=== PATIENT | female | born 1970 | race Caucasian/White ===

== ENCOUNTER 2019-11-15 08:59 | Outpatient (CLI) | payer OTHER | END 2019-11-15 09:00 | disposition home or self-care (01) | LOC: LAB 08:59 | PROVIDERS: ATTEND Physician Assistant | DX: L71.8 Other rosacea (principal) | CPT/HCPCS: 36415; 81599; 82785; 86003 ==

== ENCOUNTER 2022-04-27 07:25 | Outpatient (CLI) | payer OTHER ==
[2022-04-27 15:19] LABS: CREATININE 0.7 mg/dL (0.4-1.0); POTASSIUM 4.2 mmol/L (3.5-5.0)
== END 2022-04-27 07:26 | disposition home or self-care (01) ==
LOC: LAB.S 07:25
PROVIDERS: ATTEND Internal Medicine
DX: Z51.81 Encounter for therapeutic drug level monitoring (principal)
CPT/HCPCS: 36415; 82565; 84132

== ENCOUNTER 2022-08-16 08:39 | Emergency (ER) | payer OTHER | END 2022-08-16 09:13 | disposition left against medical advice (07) | LOC: ED 08:39 | DX: Z53.21 Procedure and treatment not carried out due to patient leaving prior to being seen by health care provider (principal) ==

== ENCOUNTER 2022-08-19 09:33 | Emergency (ER) | payer OTHER ==
[2022-08-19 09:48] VITALS: BP 199/116
[2022-08-19] MEDS ORDERED: BACITRACIN ZINC OINT 1 PACKET TOP STA (10:14)
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
== END 2022-08-19 10:35 | disposition home or self-care (01) ==
LOC: ED 09:33
DX: S80.812A Abrasion, left lower leg, initial encounter (principal); S80.811A Abrasion, right lower leg, initial encounter; W20.8XXA Other cause of strike by thrown, projected or falling object, initial encounter
CPT/HCPCS: 99282; A9270

== ENCOUNTER 2022-08-30 08:00 | Outpatient (CLI) | payer OTHER ==
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
== END 2022-08-30 23:59 | disposition home or self-care (01) ==
LOC: DI.N 08:00
PROVIDERS: ATTEND Physician Assistant Medical
DX: S81.839D Puncture wound without foreign body, unspecified lower leg, subsequent encounter (principal); M79.5 Residual foreign body in soft tissue

== ENCOUNTER 2022-11-24 07:34 | Outpatient (CLI) | payer OTHER ==
[2022-11-24 15:12] LABS: CREATININE 0.7 mg/dL (0.4-1.0); POTASSIUM 4.6 mmol/L (3.5-5.0)
== END 2022-11-24 07:35 | disposition home or self-care (01) ==
LOC: LAB.S 07:34
PROVIDERS: ATTEND Internal Medicine
DX: I10 Essential (primary) hypertension (principal)
CPT/HCPCS: 36415; 82565; 84132

== ENCOUNTER 2024-03-07 10:57 | Outpatient (CLI) | payer OTHER ==
[2024-03-07 15:19] LABS: POTASSIUM 4.4 mmol/L (3.5-4.5)
[2024-03-07 15:25] LABS: CREATININE 0.8 mg/dL (0.6-1.3)
== END 2024-03-07 10:58 | disposition home or self-care (01) ==
LOC: LAB.S 10:57
PROVIDERS: ATTEND Internal Medicine
DX: Z51.81 Encounter for therapeutic drug level monitoring (principal)
CPT/HCPCS: 36415; 82565; 84132